=== PATIENT | female | born 1950 | race Caucasian/White ===

== ENCOUNTER 2017-06-23 17:02 | Emergency (ER) | payer OTHER ==
[2017-06-23 18:18] LABS: INFLUENZA A PATIENT NEGATIVE (NEGATIVE); INFLUENZA B PATIENT NEGATIVE (NEGATIVE); OBC FLU VALID
== END 2017-06-23 18:53 | disposition home or self-care (01) ==
LOC: ER 17:02
DX: B34.9 Viral infection, unspecified (principal); R53.81 Other malaise; R53.83 Other fatigue
CPT/HCPCS: 87804; 87804-59; 99284

== ENCOUNTER → 2017-10-30 | Outpatient (CLI) | payer OTHER ==
[2017-10-30 08:55] LABS: ADD MAN DIFF? NO
[2017-10-30 09:12] LABS: BASO % 1 % (0-3); EOS # 0.2 x10^3/uL (0.0-0.7); EOS % 6 % (0-3); HEMATOCRIT 29.7 % (36.0-47.0); HEMOGLOBIN 9.9 g/dL (12.0-15.5); LYMPH % 23 % (24-48); MEAN CORPUSCULAR HEMOGLOBIN 29 pg (25-35); MEAN CORPUSCULAR HGB CONC 33 g/dL (31-37); MEAN CORPUSCULAR VOLUME 86 fL (79-100); MONO # 0.3 x10^3/uL (0.0-1.1); MONO % 7 % (0-9); NEUT # 2.7 x10^3uL (1.8-7.7); NEUT % 63 % (31-73); PLATELET COUNT 246 x10^3/uL (140-400); RED BLOOD COUNT 3.46 x10^6/uL (3.50-5.40); RED CELL DISTRIBUTION WIDTH 15.9 % (11.5-14.5); WHITE BLOOD COUNT 4.3 x10^3/uL (4.0-11.0)
[2017-10-30 09:27] LABS: ALBUMIN 3.8 g/dL (3.4-5.0); ALBUMIN/GLOBULIN RATIO 1.1 (1.0-1.7); ALK PHOS 71 U/L (46-116); ALT (SGPT) 23 U/L (14-59); ANION GAP 8 (6-14); AST (SGOT) 18 U/L (15-37); BLOOD UREA NITROGEN 19 mg/dL (7-20); BUN/CREATININE RATIO 24 (6-20); CALCIUM 8.6 mg/dL (8.5-10.1); CARBON DIOXIDE 25 mmol/L (21-32); CHLORIDE 108 mmol/L (98-107); CHOLESTEROL 180 mg/dL (0-200); CREATININE 0.8 mg/dL (0.6-1.0); GLUCOSE 120 mg/dL (70-99); HDLC 58 mg/dL (40-60); LDLC 109 mg/dL (0-100); NON-HDL CHOLESTEROL 122 mg/dL (0-129); POTASSIUM 3.8 mmol/L (3.5-5.1); SODIUM 141 mmol/L (136-145); TOTAL BILIRUBIN 1.5 mg/dL (0.2-1.0); TOTAL PROTEIN 7.3 g/dL (6.4-8.2); TRIGLYCERIDES 64 mg/dL (0-150); VLDLC 13 mg/dL (0-40)
[2017-10-30 09:29] LABS: CHOLESTEROL/HDL RATIO 3.1
[2017-10-30 09:42] LABS: FREE T4 0.93 ng/dL (0.76-1.46)
[2017-10-30 09:42] LABS: THYROID STIM HORMONE (TSH) 3.466 uIU/mL (0.358-3.74)
== END | disposition home or self-care (01) ==
LOC: MAMMO 08:27
DX: Z12.31 Encounter for screening mammogram for malignant neoplasm of breast (principal); Z13.0 Encounter for screening for diseases of the blood and blood-forming organs and certain disorders involving the immune mechanism; Z13.1 Encounter for screening for diabetes mellitus; Z13.220 Encounter for screening for lipoid disorders; M25.562 Pain in left knee; R79.89 Other specified abnormal findings of blood chemistry
CPT/HCPCS: 36415; 73562; 77063; 77067; 80053; 80061; 84439; 84443; 85025

== ENCOUNTER → 2017-11-06 | Outpatient (CLI) | payer OTHER ==
[2017-11-06 13:16] LABS: % SAT IRON 26 % (15-34); IRON,SERUM 74 ug/dL (50-170)
[2017-11-06 13:29] LABS: FERRITIN 402 ng/mL (8-252)
[2017-11-07 08:22] LABS: HEMOGLOBIN A1C <4.2 % (4.8-5.6)
== END | disposition home or self-care (01) ==
LOC: LAB 12:32
DX: D64.9 Anemia, unspecified (principal); R73.01 Impaired fasting glucose
CPT/HCPCS: 36415; 82728; 83036; 83540; 83550